=== PATIENT | male | born 1960 | race Caucasian/White ===

== ENCOUNTER 2020-12-11 10:28 | Inpatient (IN) ==
[2020-12-11] MEDS: NOREPINEPHRINE 8 MG in SODIUM CHLORIDE 0.9% 242 ML IV PRN ×9 (10:30→23:28)
[2020-12-11] MEDS ORDERED: NOREPINEPHRINE 4 MG/4 ML VIAL IV ONE ×8 (10:38→23:23)
[2020-12-11] MEDS ORDERED: fentaNYL INJ 1,250 MCG in SODIUM CHLORIDE 0.9% 225 ML IV PRN (11:23)
[2020-12-11] MEDS ORDERED: ONDANSETRON 4 MG/2 ML VIAL IV PRN (11:23)
[2020-12-11] MEDS ORDERED: MIDAZOLAM 100 MG in SODIUM CHLORIDE 0.9% 80 ML IV PRN (11:23)
[2020-12-11] MEDS ORDERED: ALBUTEROL 2.5 MG/3 ML NEB RESP TX PRN (11:23)
[2020-12-11] MEDS ORDERED: ACETAMINOPHEN 325 MG TABLET PO PRN (11:23)
[2020-12-11 11:57] LABS: ABG HCO3 22.6 MMOL/L (20-26); ABG Oxygen Saturation 87.8 % (95-100); ABG PO2 73.8 MM HG (80-95); ABG TCO2 26.7 MMOL/L (23-27)
[2020-12-11 11:59] LABS: ABG PCO2 133.4 MM HG (35-48); ABG PH 6.846 (7.35-7.45)
[2020-12-11] MEDS ORDERED: SODIUM BICARBONATE 50 MEQ/50 ML VIAL IV STA ×3 (12:00→17:44)
[2020-12-11 12:22] LABS: INR 1.1; PT Patient Result 12.8 SECS (10.5-12.0); Partial Thromboplastin Time 26.7 SECS (23.9-33.8)
[2020-12-11 12:29] LABS: Albumin 1.8 G/DL (3.4-5.0); Basophils # 0.1 10*3/uL (0.0-0.2); Basophils % 0.2 % (0.0-0.8); Bilirubin,Total 1.1 MG/DL (0.20-1.00); Calcium 8.1 MG/DL (8.5-10.1); Hematocrit 45.1 VOL% (42.0-52.0); Hemoglobin 12.7 GM/DL (14.0-18.0); Immature Granulocytes % 5.6 %; Immature Granulocytes Absolute 1.64 #; Lymphocytes # 2.1 10*3/uL (1.4-4.0); Lymphocytes % 6.9 % (21.2-54.2); Mean Corpuscular HGB Conc 28.2 GM/DL (32-36); Mean Corpuscular Volume 99.1 FL (87-102); Mean Platelet Volume 10.3 FL (9.6-12.0); Monocytes % 4.2 % (1.7-12.7); NRBC # 0.34 10*3/uL; Neutrophils % 83.1 % (38.7-73.9); Osmolality,Calculated 328.3 MOS/KG (273-304); Platelet Count 278 T/CUMM (130-400); Red Blood Count 4.55 MC/CUMM (3.8-5.5); Red Cell Distribution Width 15.1 % (9.3-17.3); Total Protein 6.2 G/DL (6.4-8.2); White Blood Count 29.5 T/CUMM (4-12)
[2020-12-11 12:35] LABS: Bacteria,Urine Occasional /HPF (Few); Bilirubin,Urine Negative (Negative); Blood, Urine Moderate mg/dL (Negative); Glucose,Urine (UA) 50 mg/dL (Negative); Ketones,Urine Negative (Negative); Mucus,Urine Occasional /LPF (Occasional); Nitrite,Urine Negative (Negative); Protein,Urine 100 MG/DL; RBC,Urine 164 /HPF (0-4); Urine Appearance CLOUDY (Clear); Urine Color Yellow (Yellow); Urine Specific Gravity 1.017 (1.001-1.035); Urine Urobilinogen < 2.0 EU/DL (0.2-1.0)
[2020-12-11 12:35] LABS: Potassium 7.2 MMOL/L (3.5-5.1)
[2020-12-11 12:52] LABS: ABG Base Excess -10.1 MMOL/L (-2.5-2.5); ABG HCO3 22.8 MMOL/L (20-26); ABG Oxygen Saturation 94.1 % (95-100); ABG PO2 82.4 MM HG (80-95); ABG TCO2 25.6 MMOL/L (23-27)
[2020-12-11 12:54] LABS: ABG PCO2 93.1 MM HG (35-48); ABG PH 7.006 (7.35-7.45)
[2020-12-11] MEDS ORDERED: DEXTROSE 50% 25 GM/50 ML VIAL IV STA (13:00)
[2020-12-11] MEDS ORDERED: INSULIN REGULAR 100 UNIT/ML IV STA (13:00)
[2020-12-11] MEDS ORDERED: CALCIUM CHLORIDE 1,000 MG/10 ML SYRINGE IV STA (13:00)
[2020-12-11 13:01] LABS: Band Neutrophils 4 % (0-10); Lymphocytes 10 % (20-55); Metamyelocytes 1 %; Nucleated Red Blood Cells 1 (0-5); Segmented Neutrophils 78 % (50-85); Total Cells Counted 100
[2020-12-11 13:02] LABS: Anisocytosis 1+; Atypical Lymphocytes Few; Macrocytosis Slight; Platelet Estimate Normal
[2020-12-11] MEDS ORDERED: CALCIUM CHLORIDE 1,000 MG/10 ML SYRINGE IV ONE (13:09)
[2020-12-11] MEDS ORDERED: DEXTROSE 50% 25 GM/50 ML SYRINGE IV ONE (13:10)
[2020-12-11] MEDS ORDERED: SODIUM BICARBONATE 50 MEQ/50 ML VIAL IV ONE (13:10)
[2020-12-11] MEDS ORDERED: INSULIN REGULAR 100 UNIT/ML ONE (13:12)
[2020-12-11] MEDS: HYDROCORTISONE 100 MG VIAL IV SCH ×2 (13:20→21:02)
[2020-12-11] MEDS ORDERED: CEFEPIME 1,000 MG in SODIUM CHLORIDE 0.9% 100 ML IV SCH (14:00)
[2020-12-11] MEDS ORDERED: ACETAMINOPHEN 325 MG/10.15 ML UDCUP PO STA (14:25)
[2020-12-11] MEDS ORDERED: ACETAMINOPHEN 325 MG/10.15 ML UDCUP NG STA (14:25)
[2020-12-11] MEDS ORDERED: ACETAMINOPHEN 160 MG/5 ML UDCUP ONE (14:29)
[2020-12-11] MEDS: FAMOTIDINE 20 MG/2 ML VIAL IV SCH (15:00)
[2020-12-11] MEDS: HEPARIN DRIP 25,000 UNITS/500 ML PREMIX IV SCH (15:20)
[2020-12-11 15:24] LABS: ABG Base Excess -12.1 MMOL/L (-2.5-2.5); ABG Oxygen Saturation 96.3 % (95-100); ABG PO2 97.3 MM HG (80-95); ABG TCO2 19.7 MMOL/L (23-27)
[2020-12-11 15:32] LABS: ABG PCO2 76.6 MM HG (35-48); ABG PH 7.038 (7.35-7.45)
[2020-12-11] MEDS ORDERED: GLUCAGON 1 MG VIAL IM PRN (15:42)
[2020-12-11 16:39] LABS: Hepatitis B Core IgM Quant 0.09 Index; Hepatitis B Surface Ag Quant < 0.10 Index; Hepatitis B Surface Ag Result Non-Reactive (NonReactive); Hepatitis C Virus Ab Quant 0.06 Index; Hepatitis C Virus Ab Result Non-Reactive (NonReactive)
[2020-12-11] MEDS ORDERED: EPINEPHrine 1 MG/ML VIAL ONE ×2 (17:11→17:13)
[2020-12-11] MEDS ORDERED: HEPARIN 10,000 UNIT/10 ML VIAL IV PRN (17:15)
[2020-12-11 17:26] LABS: Basophils # 0.1 10*3/uL (0.0-0.2); Basophils % 0.3 % (0.0-0.8); Eosinophils # 0.1 10*3/uL (0.0-0.87); Eosinophils % 0.3 % (0.00-10.9); Hematocrit 37.1 VOL% (42.0-52.0); Hemoglobin 10.2 GM/DL (14.0-18.0); Immature Granulocytes % 7.6 %; Lymphocytes # 1.9 10*3/uL (1.4-4.0); Lymphocytes % 7.4 % (21.2-54.2); Mean Corpuscular HGB Conc 27.5 GM/DL (32-36); Mean Corpuscular Volume 101.6 FL (87-102); Mean Platelet Volume 10.9 FL (9.6-12.0); NRBC # 0.92 10*3/uL; Neutrophils % 78.4 % (38.7-73.9); Platelet Count 207 T/CUMM (130-400); Red Blood Count 3.65 MC/CUMM (3.8-5.5); Red Cell Distribution Width 14.9 % (9.3-17.3); White Blood Count 26.3 T/CUMM (4-12)
[2020-12-11 17:39] LABS: ABG Base Excess -20.6 MMOL/L (-2.5-2.5); ABG Oxygen Saturation 52.8 % (95-100); ABG TCO2 18.7 MMOL/L (23-27)
[2020-12-11 17:40] LABS: ABG PH 6.781 (7.35-7.45)
[2020-12-11 17:41] LABS: ABG PO2 39.8 MM HG (80-95)
[2020-12-11 17:48] LABS: Albumin 1.3 G/DL (3.4-5.0); Bilirubin,Total 0.4 MG/DL (0.20-1.00); Calcium 9.6 MG/DL (8.5-10.1); Osmolality,Calculated 337.4 MOS/KG (273-304); Total Protein 4.1 G/DL (6.4-8.2)
[2020-12-11 17:51] LABS: Potassium 6.6 MMOL/L (3.5-5.1)
[2020-12-11] MEDS ORDERED: INSULIN REGULAR 10 UNIT, CALCIUM GLUCONATE 1,000 MG in DEXTROSE 10% 250 ML IV ONE ×2 (17:54→23:00)
[2020-12-11] MEDS ORDERED: SODIUM BICARB INJ 150 MEQ in STERILE WATER INJ 850 ML IV SCH (18:00)
[2020-12-11] MEDS: SODIUM ZIRCONIUM CYCLOSILICATE 10 GM PACK PO SCH ×2 (18:20→22:30)
[2020-12-11 18:53] LABS: Lymphocytes 12 % (20-55); Nucleated Red Blood Cells 3 (0-5); Segmented Neutrophils 81 % (50-85); Total Cells Counted 100
[2020-12-11 18:54] LABS: Atypical Lymphocytes Few; Microcytosis 1+
[2020-12-11 19:47] LABS: ABG Base Excess -15.1 MMOL/L (-2.5-2.5); ABG HCO3 12.8 MMOL/L (20-26); ABG Oxygen Saturation 86.5 % (95-100); ABG PO2 64.8 MM HG (80-95); ABG TCO2 21.2 MMOL/L (23-27)
[2020-12-11 19:48] LABS: ABG PH 6.907 (7.35-7.45)
[2020-12-11] MEDS: ASCORBIC ACID 500 MG TABLET PO SCH (21:57)
[2020-12-12 00:06] LABS: Calcium 8.2 MG/DL (8.5-10.1); Osmolality,Calculated 327.4 MOS/KG (273-304)
[2020-12-12 00:09] LABS: Potassium 6.6 MMOL/L (3.5-5.1)
[2020-12-12 00:34] LABS: ABG Base Excess -16.5 MMOL/L (-2.5-2.5); ABG Oxygen Saturation 92.8 % (95-100); ABG PO2 80.5 MM HG (80-95); ABG TCO2 18.4 MMOL/L (23-27)
[2020-12-12 00:36] LABS: ABG PCO2 88.5 MM HG (35-48); ABG PH 6.927 (7.35-7.45)
[2020-12-12] MEDS: NOREPINEPHRINE 8 MG in SODIUM CHLORIDE 0.9% 242 ML IV PRN ×6 (00:40→08:26)
[2020-12-12] MEDS ORDERED: SODIUM BICARBONATE 50 MEQ/50 ML VIAL IV STA (00:59)
[2020-12-12] MEDS: FAMOTIDINE 20 MG/2 ML VIAL IV SCH (01:17)
[2020-12-12] MEDS ORDERED: PHENYLEPHRINE DRIP 40 MG/250 ML PREMIX IV PRN (02:37)
[2020-12-12] MEDS ORDERED: PHENYLEPHRINE INJ 160 MG in SODIUM CHLORIDE 0.9% 234 ML IV PRN (02:37)
[2020-12-12 02:46] LABS: Calcium 7.8 MG/DL (8.5-10.1); Osmolality,Calculated 333.1 MOS/KG (273-304)
[2020-12-12] MEDS ORDERED: SODIUM BICARBONATE 50 MEQ/50 ML VIAL IV ONE (03:29)
[2020-12-12] MEDS ORDERED: AMIODARONE INJ 150 MG in DEXTROSE 5% 100 ML IV ONE (03:34)
[2020-12-12 03:44] LABS: ABG Base Excess -15.8 MMOL/L (-2.5-2.5); ABG HCO3 12.5 MMOL/L (20-26); ABG Oxygen Saturation 93.8 % (95-100); ABG PO2 87.6 MM HG (80-95); ABG TCO2 19.3 MMOL/L (23-27)
[2020-12-12 03:46] LABS: ABG PCO2 91.7 MM HG (35-48); ABG PH 6.932 (7.35-7.45)
[2020-12-12] MEDS ORDERED: AMIODARONE INJ 450 MG in DEXTROSE 5% 241 ML IV SCH (04:00)
[2020-12-12] MEDS ORDERED: NOREPINEPHRINE 4 MG/4 ML VIAL IV ONE ×3 (04:34→07:02)
[2020-12-12] MEDS: HYDROCORTISONE 100 MG VIAL IV SCH (04:45)
[2020-12-12 05:28] LABS: Albumin 1.2 G/DL (3.4-5.0); Basophils % 0.1 % (0.0-0.8); Bilirubin,Total 1.2 MG/DL (0.20-1.00); Calcium 8.1 MG/DL (8.5-10.1); Hematocrit 37.5 VOL% (42.0-52.0); Hemoglobin 10.9 GM/DL (14.0-18.0); Immature Granulocytes % 8.6 %; Immature Granulocytes Absolute 2.73 #; Lymphocytes # 1.8 10*3/uL (1.4-4.0); Lymphocytes % 5.5 % (21.2-54.2); Mean Corpuscular HGB Conc 29.1 GM/DL (32-36); Mean Corpuscular Volume 96.9 FL (87-102); Mean Platelet Volume 10.6 FL (9.6-12.0); Monocytes % 7.6 % (1.7-12.7); NRBC # 1.44 10*3/uL; Neutrophils % 78.2 % (38.7-73.9); Osmolality,Calculated 332.9 MOS/KG (273-304); Platelet Count 173 T/CUMM (130-400); Red Blood Count 3.87 MC/CUMM (3.8-5.5); Red Cell Distribution Width 14.9 % (9.3-17.3); Total Protein 4.2 G/DL (6.4-8.2); White Blood Count 31.7 T/CUMM (4-12)
[2020-12-12 05:32] LABS: Band Neutrophils 4 % (0-10); Lymphocytes 9 % (20-55); Nucleated Red Blood Cells 1 (0-5); Potassium 6.5 MMOL/L (3.5-5.1); Segmented Neutrophils 84 % (50-85); Total Cells Counted 100
[2020-12-12 05:33] LABS: Platelet Estimate Normal
[2020-12-12 05:52] VITALS: BP 69/36
[2020-12-12] MEDS: ASCORBIC ACID 500 MG TABLET PO SCH (08:00)
[2020-12-12] MEDS ORDERED: NOREPINEPHRINE 32 MG in SODIUM CHLORIDE 0.9% 468 ML IV PRN (08:29)
[2020-12-12] MEDS ORDERED: CHOLECALCIFEROL 1,000 UNIT TABLET PO SCH (09:00)
[2020-12-12] MEDS ORDERED: ZINC GLUCONATE 50 MG TABLET PO SCH (09:00)
[2020-12-12] MEDS ORDERED: IVERMECTIN 3 MG TABLET PO SCH (09:00)
[2020-12-12] MEDS: SODIUM ZIRCONIUM CYCLOSILICATE 10 GM PACK PO SCH (09:12)
[2020-12-12] MEDS ORDERED: FAMOTIDINE 20 MG/2 ML VIAL IV SCH (12:00)
[2020-12-12] MEDS: HEPARIN DRIP 25,000 UNITS/500 ML PREMIX IV SCH (12:33)
== END 2020-12-12 11:25 | disposition expired | DRG 208 ==
LOC: N.ED 10:28 → N.EDINP 11:23 → N.CC 12-12 05:01
PROVIDERS: ADMIT Internal Medicine; ATTEND Internal Medicine